=== PATIENT | male | born 1935 | race Caucasian/White ===

== ENCOUNTER → 2022-04-11 | Outpatient (CLI) | payer MEDICARE, OTHER ==
[~2022-04-11] MED LIST: IRBHYD150; LATA.005SO; LEVSOD50; POTCHL20ER; VYTORIN
== END | disposition home or self-care (01) ==
LOC: LAB SHORT 10:25 → LAB 10:25
DX: N39.0 Urinary tract infection, site not specified (principal)
CPT/HCPCS: 87086